=== PATIENT | female | born 2000 | race African-American/Black ===

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

== ENCOUNTER 2022-02-08 15:44 | Outpatient (CLI) | payer MEDICAID ==
[2022-02-08 16:31] VITALS: BP 128/66
[2022-02-08] MEDS ORDERED: LACTATED RINGERS 500 ML IV ONE (18:30)
[2022-02-08 18:48] LABS: Bacteria,Urine 1+ /HPF (Negative); Mucus,Urine FEW /HPF
[2022-02-08 18:54] LABS: Color,Urine Yellow (Yellow)
[2022-02-08 18:55] LABS: Bilirubin,Urine Negative (Negative); Blood,Urine Negative (Negative); PH,Urine 5.5 (5.0-7.0); Urobilinogen,Urine < 2.0 mg/dL (<2.0)
--- NOTE | 2022-02-09 00:34 | Ultrasound Report ---
ULTRASOUND OBSTETRIC INDICATION: 31 weeks, contractions. TECHNIQUE: Transabdominal. COMPARISON: OB ultrasound from 11/12/2021. FINDINGS: There is a single intrauterine in cephalic presentation with a heart rate of 144 BPM and fe nury measurements corresponding to an estimated age of 31.1 weeks. Estimated Weight in grams (if calculated): Estimated Weight Growth Percentile (if calculated): Cervix: closed. Length in cm (if measured): 4.3 Placenta: anterofundal and free of the os. Amniotic Fluid Volume: normal Amniotic Fluid Index (ASHISH) in cm (if calculated): 10.6. Maternal Adnexa: No significant abnormality. IMPRESSION: 1. Single, living intrauterine with estimated sonographic age of 31 weeks, 1 day(s). 2. No significant sonographic abnormality. Signer Name: Yon Gray MD Signed: 02/09/2022 12:29 AM Workstation Name: [id number]
== END 2022-02-08 23:38 | disposition home or self-care (01) ==
LOC: TRG 15:44 → APU 15:46 → TRG 23:38
PROVIDERS: ATTEND Obstetrics & Gynecology
DX: O62.9 Abnormality of forces of labor, unspecified (principal); Z3A.31 31 weeks gestation of pregnancy
CPT/HCPCS: 36415; 59025; 76816; 81001; 82731; 96360; J7120

== ENCOUNTER 2022-03-02 12:35 | Outpatient (CLI) | payer MEDICAID ==
[2022-03-02] MEDS ORDERED: LACTATED RINGERS 1,000 ML IV ONE (14:08)
[2022-03-02] MEDS ORDERED: TERBUTALINE 1 MG/1 ML INJ SUB-Q ONE (14:09)
[2022-03-02] MEDS ORDERED: NIFEdipine*For Tocolysis only* 10 MG CAPSULE PO ONE (15:52)
[2022-03-02] MEDS ORDERED: TERBUTALINE 1 MG/1 ML INJ SUB-Q PRN (19:05)
[2022-03-02] MEDS ORDERED: miSOPROStol 200 MCG TAB PR PRN (19:05)
[2022-03-02] MEDS ORDERED: CARBOPROST TROMETHAMINE 250 MCG/1 ML INJ IM PRN (19:05)
[2022-03-02] MEDS ORDERED: BUTORPHANOL 2 MG/1 ML INJ IV PRN (19:05)
[2022-03-02] MEDS ORDERED: ePHEDrine SULFATE 50 MG/1 ML INJ IV PRN (19:05)
[2022-03-02] MEDS ORDERED: METHYLERGONOVINE MALEATE 0.2 MG/ML VIAL IM PRN (19:05)
[2022-03-02] MEDS ORDERED: NALOXONE 0.4 MG/1 ML INJ IV PRN (19:05)
[2022-03-02] MEDS ORDERED: LOPERAMIDE 2 MG CAP PO PRN (19:05)
[2022-03-02] MEDS ORDERED: MINERAL OIL 30 ML ORAL LIQD PO PRN (19:05)
[2022-03-02] MEDS ORDERED: OXYTOCIN 10 UNIT/1 ML INJ IM PRN (19:05)
[2022-03-02] MEDS ORDERED: AMPICILLIN/NS 2 GM/100 ML 2 GM/100 ML BAG IV ONE (19:05)
[2022-03-02] MEDS ORDERED: LIDOCAINE (2%) 20 MG/1 ML VIAL 20 ML MDV INFILTRATI ONE (19:05)
--- NOTE | 2022-03-02 19:15 | History and Physical Report ---
History of Present Illness Date of examination: 03/02/22 Date of admission: 03/02/2022 Chief complaint: Intense Labor Pains History of present illness: Care at [facility], states course has been uncomplicated. Past History Past Medical History: no pertinent history Past Surgical History: no surgical history Family/Genetic History: none Social history: single - Obstetrical History Expected Date of Delivery: 04/08/22 Actual Gestation: 34 Week(s) 5 Day(s) : 1 Medications and Allergies Allergies Allergy/AdvReac Type Severity Reaction Status Date / Time No Known Allergies Allergy Unverified 06/10/14 04:14 Home Medications Medication Instructions Recorded Confirmed Last Taken Type Doxylamine Succinate/Vit B6 1 each PO Q8H PRN #30 tab 11/12/21 Unknown Rx [Mandy Hoff 10-10 mg Tablet] Review of Systems All systems: negative - Vital Signs Vital signs: Vital Signs Pulse BP Pulse Ox 116 H 131/63 98 03/02/22 13:22 03/02/22 13:22 03/02/22 13:22 Temp Pulse Resp BP Pulse Ox 99.4 F 118 H 119/63 100 03/02/22 17:18 03/02/22 17:49 03/02/22 16:29 03/02/22 17:49 - Physical Exam Breasts: Positive: normal Lungs: Positive: Clear to auscultation, Normal air movement Abdomen: Positive: normal appearance, soft, normal bowel sounds Genitourinary (Female): Positive: normal external genitalia, normal perenium Vagina: Positive: normal moisture Uterus: Positive: enlarged Anus/Rectum: Positive: normal perianal skin - Obstetrical FHR: category 1 Uterine Contraction Monitor Mode: External Cervical Dilatation: 3 (Vtx, Intact) Cervical Effacement Percentage: 80 station: -3 Uterine Contraction Frequency (min): 1-2 Uterine Contraction Pattern: Regular Uterine Tone Measurement Phase: Resting Uterine Contraction Intensity: Moderate Results All other labs normal. Assessment and Plan A: IUP @ 34 5/7 Weeks Category I Tracing Labor GBS Unknown P: Admit to L&D Per Routine Orders GBS Prophylaxis Expectant Management Dr. Piedra Consulted and agrees with Plan of Care
[2022-03-02] MEDS ORDERED: OXYTOCIN DRIP 30 UNITS/500 ML BAG IV SCH ×2 (20:00)
[2022-03-02] MEDS: LACTATED RINGERS 1,000 ML IV SCH (21:30)
[2022-03-02 21:45] LABS: Hematocrit 35.1 % (30.3-42.9); Hemoglobin 11.9 gm/dl (10.1-14.3); Mean Corpuscular HGB Conc 34 % (30-34); Mean Corpuscular Volume 89 fl (79-97); Platelet Count 171 K/mm3 (140-440); Red Blood Count 3.96 M/mm3 (3.65-5.03); Red Cell Distribution Width 14.7 % (13.2-15.2)
[2022-03-02] MEDS: ACETAMINOPHEN 500 MG TAB PO PRN (22:43)
[2022-03-03] MEDS: AMPICILLIN/NS 1 GM/50 ML 1 GM/50 ML BAG IV SCH ×3 (01:54→13:15)
--- NOTE | 2022-03-03 02:36 | Ultrasound Report ---
US OB transvaginal, US OB follow up INDICATION / CLINICAL INFORMATION: cervical length COMPARISON: Limited OB ultrasound 02/08/2022. OB ultrasound 11/12/2021 TECHNIQUE: Using a transcutaneous and endovaginal probe, multiple grayscale, color Doppler, and spect ral Doppler images of the uterus and fetus were captured and stored. FINDINGS: Single cephalic fetus heart rate 150. Amniotic fluid index within normal limits measuring 10.4 cm. Grade 2 anterior placenta without sonographic abnormality. Cervix appears shortened measuring 1.3 cm internal os not well-visualized. There is fluid within the endocervical canal and endocervical canal measures up to 2.6 mm in diameter. Biparietal Diameter = 8.86 cm = 35, 6 weeks, days Head Circumference = 30.68 cm = 34, 1 weeks, days Abdominal Circumference = 29.89 cm = 33, 3 weeks, days Femur Length = 6.62 cm = 34, 1 weeks, days Average Ultrasound Age (AUA) = 34, 3 weeks, days. EDC 04/11/2022. Clinical estimate of gestational age is 34 weeks 6 days. Estimated weight = 2300 g; growth percentile 21%.. IMPRESSION: 1. Single living fetus as detailed. Signer Name: Bryan Rico II, MD Signed: 03/03/2022 2:32 AM Workstation Name: [id number]
[2022-03-03] MEDS: LACTATED RINGERS 1,000 ML IV SCH ×2 (06:18→13:14)
--- NOTE | 2022-03-03 10:47 | Event Note ---
Date: 03/03/22 pt evaluated and pelvic /3 and posterior with dark brown mucus. Will do BPP and same wnl, then will discharge home. Will also check covid test and pt told to keep her mask on. Family members in the room also told to keep their mask on. Nurses aware and temp now low grade.
--- NOTE | 2022-03-03 12:03 | Event Note ---
Date: 03/03/22 pt evaluated again and told that her COVID test is positive. pt also asked per nurse stating hospital policy to have 1visitor only and no longer 2. I also told family members to get tested and the other exposed immediate family members to remain in quarantine. CXR done and report pending.
--- NOTE | 2022-03-03 12:18 | XRay Report ---
CHEST 1 VIEW INDICATION / CLINICAL INFORMATION: coughing, low grade temp preg at 34wks; shield abd STUDY TIME: 1135 COMPARISON: None available. FINDINGS: SUPPORT DEVICES: None HEART / MEDIASTINUM: No significant abnormality. LUNGS / PLEURA: Poor degree of inspiration is seen with crowding of vessels in the lung bases. No def inite pneumonic infiltrate or effusion. No pneumothorax. ADDITIONAL FINDINGS: Probable bone island in right humeral head. Signer Name: Matthieu Jean Baptiste MD Signed: 03/03/2022 12:14 PM Workstation Name: [email or web address]
[2022-03-03] MEDS: ACETAMINOPHEN 500 MG TAB PO PRN ×2 (13:14→21:05)
--- NOTE | 2022-03-03 13:19 | Event Note ---
Date: 03/03/22 pt now febrile with tacchycardia and hospitalist consult done to Dr. Tierney. Will send urine culture, and blood cultures x2sets and start rocephin 2gIV piggyback. Pt remains on room air without shortness of breath.
[2022-03-03] MEDS: cefTRIAXone/NS 2 GM/100 ML 2 GM/100 ML BAG IV SCH (18:04)
[2022-03-03 19:09] LABS: Bacteria,Urine 1+ /HPF (Negative); Color,Urine Yellow (Yellow); Mucus,Urine FEW /HPF
--- NOTE | 2022-03-03 19:17 | Consultation ---
History of Present Illness - Reason for Consult Consult date: 03/03/22 Medical management Requesting physician: BENJI MELGAR Past History Social history: single Medications and Allergies Allergies Allergy/AdvReac Type Severity Reaction Status Date / Time No Known Allergies Allergy Unverified 06/10/14 04:14 Home Medications Medication Instructions Recorded Confirmed Last Taken Type Doxylamine Succinate/Vit B6 1 each PO Q8H PRN #30 tab 11/12/21 Unknown Rx [Mandy Hoff 10-10 mg Tablet] Active Meds: Active Medications Acetaminophen (Acetaminophen 500 Mg Tab) 1,000 mg PO Q4H PRN PRN Reason: Pain, Mild (1-3) Last Admin: 03/03/22 13:14 Dose: 1,000 mg Butorphanol Tartrate (Butorphanol 2 Mg/1 Ml Inj) 2 mg IV Q2H PRN PRN Reason: Pain, Moderate (4-6) Carboprost Tromethamine (Carboprost Tromethamine 250 Mcg/1 Ml Inj) 250 mcg IM ONCE PRN PRN Reason: Uterine Bleeding Lactated Ringer's (Lactated Ringers) 1,000 mls @ 125 mls/hr IV DIRECT CARMEN Last Admin: 03/03/22 13:14 Dose: 125 mls/hr Oxytocin/Sodium Chloride (Pitocin/Ns 30 Unit/500ml) 30 units in 500 mls @ 40 mls/hr IV TITR CARMEN; Protocol Ceftriaxone Sodium (Rocephin/Ns 2 Gm/100 Ml) 2 gm in 100 mls @ 200 mls/hr IV Q24H CARMEN; Protocol Stop: 03/05/22 15:29 Last Admin: 03/03/22 18:04 Dose: 200 mls/hr Loperamide HCl (Loperamide 2 Mg Cap) 2 mg PO ONCE PRN PRN Reason: give with Hemabate Methylergonovine Maleate (Methylergonovine Maleate 0.2 Mg/Ml Vial) 0.2 mg IM ONCE PRN PRN Reason: Uterine Bleeding Naloxone HCl (Naloxone 0.4 Mg/1 Ml Inj) 0.1 mg IV Q2MIN PRN PRN Reason: Res Rate </= 8 or 02 SAT < 92% Terbutaline Sulfate (Terbutaline 1 Mg/1 Ml Inj) 0.25 mg SUB-Q ONCE PRN PRN Reason: Hyperstimulation/Hypertonicity Exam - Constitutional Vitals: Temp Pulse Resp BP Pulse Ox 99.0 F 119 H 16 101/52 97 03/03/22 16:12 03/03/22 19:05 03/03/22 13:14 03/03/22 16:08 03/03/22 19:05 General appearance: Present: no acute distress, well-nourished - EENT Eyes: Present: PERRL ENT: hearing intact, clear oral mucosa - Neck Neck: Present: supple, normal ROM - Respiratory Respiratory effort: normal Respiratory: bilateral: CTA - Cardiovascular Heart Sounds: Present: S1 & S2. Absent: rub, click - Extremities Extremities: pulses symmetrical, No edema Peripheral Pulses: within normal limits - Abdominal General gastrointestinal: Present: soft, non-tender, non-distended, normal bowel sounds Female genitourinary: Present: normal - Integumentary Integumentary: Present: clear, warm, dry - Musculoskeletal Musculoskeletal: gait normal, strength equal bilaterally - Psychiatric Psychiatric: appropriate mood/affect, intact judgment & insight - Neurologic Neurologic: CNII-XII intact, moves all extremities Results - Labs CBC & Chem 7: 03/02/22 19:00 Labs: Abnormal lab results 03/03/22 03/03/22 Range/Units 10:54 Unknown Urine WBC (Auto) 8.0 H (0.0-6.0) /HPF SARS-CoV-2 (PCR) Positive A (Negative) Assessment and Plan - Patient Problems (1) COVID-19 Current Visit: Yes Status: Acute Plan to address problem: Patient is febrile Treated with Tylenol symptomatically IV Rocephin for now Patient is on room air Cannot start Paxlovid because of and possible teratogenic effects (2) Pneumonia Current Visit: Yes Status: Acute Qualifiers: Lung location: unspecified part of lung Plan to address problem: No evidence of infiltrate on chest x-ray Will treat as pneumonia IV Rocephin for now (3) DVT prophylaxis Current Visit: Yes Status: Acute Plan to address problem: On anticoagulation and GI prophylaxis (4) Advance care planning Current Visit: Yes Status: Acute Plan to address problem: Disease education conducted ,care plandiscussed,diagnosis discussed and prognos is discussed.Patient is full code.Patient acknowledges understanding and agreement with care plan .Plus 30 minutes
[2022-03-04] MEDS: ACETAMINOPHEN 500 MG TAB PO PRN ×3 (05:29→20:08)
[2022-03-04 06:13] LABS: Basophils % (Auto) 0.5 % (0.0-1.8); Eosinophils # (Auto) 0.1 K/mm3 (0.0-0.4); Eosinophils % (Auto) 1.9 % (0.0-4.3); Hematocrit 29.9 % (30.3-42.9); Lymphocytes # (Auto) 1.1 K/mm3 (1.2-5.4); Lymphocytes % (Auto) 17.8 % (13.4-35.0); Mean Corpuscular HGB Conc 34 % (30-34); Mean Corpuscular Volume 89 fl (79-97); Monocytes # (Auto) 0.5 K/mm3 (0.0-0.8); Monocytes % (Auto) 8.5 % (0.0-7.3); Platelet Count 138 K/mm3 (140-440); Red Blood Count 3.38 M/mm3 (3.65-5.03); Red Cell Distribution Width 14.5 % (13.2-15.2)
[2022-03-04 06:34] LABS: Alanine Aminotransferase 15 units/L (7-56); Albumin 3.4 g/dL (3.9-5); Blood Urea Nitrogen 4 mg/dL (7-17); Calcium 8.6 mg/dL (8.4-10.2); Hemolysis Index 9
[2022-03-04 06:35] LABS: BUN/Creatinine Ratio 10
[2022-03-04] MEDS: cefTRIAXone/NS 2 GM/100 ML 2 GM/100 ML BAG IV SCH (15:25)
--- NOTE | 2022-03-04 18:26 | Progress Note ---
Assessment and Plan - Patient Problems (1) COVID-19 Current Visit: Yes Status: Acute Plan to address problem: Patient is febrile Treated with Tylenol symptomatically IV Rocephin for now Patient is on room air Cannot start Paxlovid because of and possible teratogenic effects (2) Pneumonia Current Visit: Yes Status: Acute Qualifiers: Lung location: unspecified part of lung Plan to address problem: No evidence of infiltrate on chest x-ray Will treat as pneumonia IV Rocephin for now (3) DVT prophylaxis Current Visit: Yes Status: Acute Plan to address problem: On anticoagulation and GI prophylaxis (4) Advance care planning Current Visit: Yes Status: Acute Plan to address problem: Disease education conducted ,care plandiscussed,diagnosis discussed and prognosis discussed.Patient is full code.Patient acknowledges understanding and agreement with care plan .Plus 30 minutes Subjective Date of service: 03/04/22 Objective - Constitutional Vitals: Vital Signs - 12hr 03/04/22 03/04/22 03/04/22 06:27 06:32 06:37 Temperature Pulse Rate 105 H 97 H 114 H O2 Sat by Pulse 98 97 97 Oximetry O2 Sat by Pulse Oximetry [ Bilateral] 03/04/22 03/04/22 03/04/22 06:42 06:47 06:52 Temperature Pulse Rate 107 H 100 H 110 H O2 Sat by Pulse 97 98 98 Oximetry O2 Sat by Pulse Oximetry [ Bilateral] 03/04/22 03/04/22 03/04/22 06:57 07:02 07:07 Temperature Pulse Rate 110 H 109 H 102 H O2 Sat by Pulse 98 98 97 Oximetry O2 Sat by Pulse Oximetry [ Bilateral] 03/04/22 03/04/22 03/04/22 07:12 07:17 07:22 Temperature Pulse Rate 100 H 98 H 95 H O2 Sat by Pulse 98 97 98 Oximetry O2 Sat by Pulse Oximetry [ Bilateral] 03/04/22 03/04/22 03/04/22 07:27 07:32 07:45 Temperature Pulse Rate 101 H 117 H 110 H O2 Sat by Pulse 98 99 98 Oximetry O2 Sat by Pulse Oximetry [ Bilateral] 03/04/22 03/04/22 03/04/22 07:50 07:55 08:00 Temperature Pulse Rate 101 H 110 H 107 H O2 Sat by Pulse 99 98 99 Oximetry O2 Sat by Pulse Oximetry [ Bilateral] 03/04/22 03/04/22 03/04/22 08:05 08:06 08:10 Temperature 98.2 F Pulse Rate 101 H 108 H O2 Sat by Pulse 99 99 Oximetry O2 Sat by Pulse Oximetry [ Bilateral] 03/04/22 03/04/22 03/04/22 08:15 08:20 08:25 Temperature Pulse Rate 114 H 108 H 104 H O2 Sat by Pulse 99 99 99 Oximetry O2 Sat by Pulse Oximetry [ Bilateral] 03/04/22 03/04/22 03/04/22 08:30 08:35 08:40 Temperature Pulse Rate 96 H 107 H 96 H O2 Sat by Pulse 99 99 99 Oximetry O2 Sat by Pulse Oximetry [ Bilateral] 03/04/22 03/04/22 03/04/22 08:45 08:50 08:55 Temperature Pulse Rate 98 H 105 H 101 H O2 Sat by Pulse 99 99 99 Oximetry O2 Sat by Pulse Oximetry [ Bilateral] 03/04/22 03/04/22 03/04/22 09:00 09:01 09:05 Temperature Pulse Rate 99 H 102 H O2 Sat by Pulse 99 99 Oximetry O2 Sat by Pulse 99 Oximetry [ Bilateral] 03/04/22 03/04/22 03/04/22 09:10 09:15 09:20 Temperature Pulse Rate 102 H 109 H 102 H O2 Sat by Pulse 99 99 99 Oximetry O2 Sat by Pulse Oximetry [ Bilateral] 03/04/22 03/04/22 03/04/22 09:25 09:30 09:35 Temperature Pulse Rate 99 H 94 H 104 H O2 Sat by Pulse 99 99 100 Oximetry O2 Sat by Pulse Oximetry [ Bilateral] 03/04/22 03/04/22 03/04/22 09:45 09:50 09:55 Temperature Pulse Rate 102 H 99 H 95 H O2 Sat by Pulse 99 98 99 Oximetry O2 Sat by Pulse Oximetry [ Bilateral] 03/04/22 03/04/22 03/04/22 10:00 10:05 10:10 Temperature Pulse Rate 100 H 96 H 100 H O2 Sat by Pulse 99 99 99 Oximetry O2 Sat by Pulse Oximetry [ Bilateral] 03/04/22 03/04/22 03/04/22 10:15 10:20 10:25 Temperature Pulse Rate 100 H 102 H 105 H O2 Sat by Pulse 99 99 99 Oximetry O2 Sat by Pulse Oximetry [ Bilateral] 03/04/22 03/04/22 03/04/22 10:30 10:35 10:40 Temperature Pulse Rate 98 H 99 H 108 H O2 Sat by Pulse 99 98 100 Oximetry O2 Sat by Pulse Oximetry [ Bilateral] 03/04/22 03/04/22 03/04/22 10:45 10:50 10:55 Temperature Pulse Rate 90 97 H 108 H O2 Sat by Pulse 99 99 100 Oximetry O2 Sat by Pulse Oximetry [ Bilateral] 03/04/22 03/04/22 03/04/22 11:02 11:07 11:12 Temperature Pulse Rate 105 H 107 H 96 H O2 Sat by Pulse 98 99 99 Oximetry O2 Sat by Pulse Oximetry [ Bilateral] 03/04/22 03/04/22 03/04/22 11:17 11:22 11:27 Temperature Pulse Rate 101 H 111 H 92 H O2 Sat by Pulse 99 99 98 Oximetry O2 Sat by Pulse Oximetry [ Bilateral] 03/04/22 03/04/22 03/04/22 11:32 11:37 11:42 Temperature Pulse Rate 106 H 107 H 110 H O2 Sat by Pulse 99 99 99 Oximetry O2 Sat by Pulse Oximetry [ Bilateral] 03/04/22 03/04/22 03/04/22 11:47 11:52 11:57 Temperature Pulse Rate 119 H 108 H 109 H O2 Sat by Pulse 99 99 98 Oximetry O2 Sat by Pulse Oximetry [ Bilateral] 03/04/22 03/04/22 03/04/22 12:02 12:07 12:12 Temperature Pulse Rate 124 H 121 H 116 H O2 Sat by Pulse 99 99 99 Oximetry O2 Sat by Pulse Oximetry [ Bilateral] 03/04/22 03/04/22 03/04/22 12:17 12:22 12:27 Temperature Pulse Rate 111 H 111 H 107 H O2 Sat by Pulse 99 99 99 Oximetry O2 Sat by Pulse Oximetry [ Bilateral] 03/04/22 03/04/22 03/04/22 12:32 12:37 12:42 Temperature Pulse Rate 113 H 110 H 97 H O2 Sat by Pulse 99 99 99 Oximetry O2 Sat by Pulse Oximetry [ Bilateral] 03/04/22 03/04/22 03/04/22 12:47 12:52 12:57 Temperature Pulse Rate 97 H 100 H 99 H O2 Sat by Pulse 98 99 99 Oximetry O2 Sat by Pulse Oximetry [ Bilateral] 03/04/22 03/04/22 03/04/22 13:02 13:07 13:12 Temperature Pulse Rate 100 H 103 H 105 H O2 Sat by Pulse 99 99 99 Oximetry O2 Sat by Pulse Oximetry [ Bilateral] 03/04/22 03/04/22 03/04/22 13:17 13:22 13:27 Temperature Pulse Rate 95 H 96 H 95 H O2 Sat by Pulse 99 99 99 Oximetry O2 Sat by Pulse Oximetry [ Bilateral] 03/04/22 03/04/22 03/04/22 13:32 13:37 13:42 Temperature Pulse Rate 104 H 101 H 94 H O2 Sat by Pulse 100 99 99 Oximetry O2 Sat by Pulse Oximetry [ Bilateral] 03/04/22 03/04/22 03/04/22 13:47 13:52 13:57 Temperature Pulse Rate 101 H 99 H 115 H O2 Sat by Pulse 98 99 99 Oximetry O2 Sat by Pulse Oximetry [ Bilateral] 03/04/22 03/04/22 03/04/22 14:02 14:07 14:12 Temperature Pulse Rate 119 H 113 H 112 H O2 Sat by Pulse 99 99 99 Oximetry O2 Sat by Pulse Oximetry [ Bilateral] 03/04/22 03/04/22 03/04/22 14:17 14:22 14:27 Temperature Pulse Rate 121 H 108 H 119 H O2 Sat by Pulse 99 99 100 Oximetry O2 Sat by Pulse Oximetry [ Bilateral] 03/04/22 03/04/22 03/04/22 14:32 14:37 14:42 Temperature Pulse Rate 118 H 110 H 110 H O2 Sat by Pulse 99 99 99 Oximetry O2 Sat by Pulse Oximetry [ Bilateral] 03/04/22 03/04/22 03/04/22 14:47 14:52 14:57 Temperature Pulse Rate 110 H 116 H 120 H O2 Sat by Pulse 99 99 100 Oximetry O2 Sat by Pulse Oximetry [ Bilateral] 03/04/22 03/04/22 03/04/22 15:07 15:12 15:17 Temperature Pulse Rate 113 H 116 H 109 H O2 Sat by Pulse 100 100 99 Oximetry O2 Sat by Pulse Oximetry [ Bilateral] 08/27/22 08/27/22 08/27/22 15:22 15:27 15:32 Temperature Pulse Rate 110 H 113 H 110 H O2 Sat by Pulse 99 99 99 Oximetry O2 Sat by Pulse Oximetry [ Bilateral] 03/04/22 03/04/22 03/04/22 15:37 15:42 15:47 Temperature Pulse Rate 109 H 110 H 114 H O2 Sat by Pulse 99 99 99 Oximetry O2 Sat by Pulse Oximetry [ Bilateral] 03/04/22 03/04/22 03/04/22 15:52 15:57 16:02 Temperature Pulse Rate 111 H 112 H 110 H O2 Sat by Pulse 99 100 100 Oximetry O2 Sat by Pulse Oximetry [ Bilateral] 03/04/22 03/04/22 03/04/22 16:07 16:12 16:17 Temperature Pulse Rate 110 H 122 H 105 H O2 Sat by Pulse 99 99 99 Oximetry O2 Sat by Pulse Oximetry [ Bilateral] 03/04/22 03/04/22 03/04/22 16:22 16:27 16:32 Temperature Pulse Rate 120 H 113 H 114 H O2 Sat by Pulse 99 99 99 Oximetry O2 Sat by Pulse Oximetry [ Bilateral] 03/04/22 03/04/22 03/04/22 16:37 16:42 16:47 Temperature Pulse Rate 119 H 113 H 116 H O2 Sat by Pulse 99 98 98 Oximetry O2 Sat by Pulse Oximetry [ Bilateral] 03/04/22 03/04/22 03/04/22 16:52 16:57 17:02 Temperature Pulse Rate 108 H 110 H 109 H O2 Sat by Pulse 98 98 99 Oximetry O2 Sat by Pulse Oximetry [ Bilateral] 03/04/22 03/04/22 03/04/22 17:07 17:12 17:21 Temperature Pulse Rate 101 H 105 H 108 H O2 Sat by Pulse 98 99 99 Oximetry O2 Sat by Pulse Oximetry [ Bilateral] 03/04/22 03/04/22 03/04/22 17:26 17:31 17:36 Temperature Pulse Rate 117 H 107 H 113 H O2 Sat by Pulse 98 97 99 Oximetry O2 Sat by Pulse Oximetry [ Bilateral] 03/04/22 03/04/22 03/04/22 17:41 17:46 17:51 Temperature Pulse Rate 109 H 111 H 102 H O2 Sat by Pulse 98 99 99 Oximetry O2 Sat by Pulse Oximetry [ Bilateral] 03/04/22 03/04/2222 17:56 18:01 18:06 Temperature Pulse Rate 121 H 111 H 106 H O2 Sat by Pulse 99 99 99 Oximetry O2 Sat by Pulse Oximetry [ Bilateral] 03/04/22 03/04/22 03/04/22 18:11 18:16 18:21 Temperature Pulse Rate 111 H 98 H 99 H O2 Sat by Pulse 99 99 99 Oximetry O2 Sat by Pulse Oximetry [ Bilateral] General appearance: Present: no acute distress, well-nourished - EENT Eyes: PERRL, EOM intact ENT: hearing intact, clear oral mucosa Ears: bilateral: normal - Neck Neck: supple, normal ROM - Respiratory Respiratory effort: normal Respiratory: bilateral: CTA - Breasts Breasts: normal - Cardiovascular Rhythm: regular Heart Sounds: Present: S1 & S2. Absent: gallop, rub Extremities: pulses intact, No edema, normal color, Full ROM - Gastrointestinal General gastrointestinal: Present: soft, non-tender, non-distended, normal bowel sounds - Genitourinary Female genitourinary: normal - Integumentary Integumentary: clear, warm, dry - Musculoskeletal Musculoskeletal: 1, strength equal bilaterally - Neurologic Neurologic: moves all extremities - Psychiatric Psychiatric: memory intact, appropriate mood/affect, intact judgment & insight - Labs CBC & Chem 7: 03/04/22 05:48 03/04/22 05:48 Labs: Abnormal lab results 03/03/22 03/04/22 03/04/22 Range/Units Unknown 05:48 05:48 RBC 3.38 L (3.65-5.03) M/mm3 Hgb 10.0 L (10.1-14.3) gm/dl Hct 29.9 L (30.3-42.9) % Plt Count 138 L (140-440) K/mm3 [place] % (Auto) 8.5 H (0.0-7.3) % Lymph # (Auto) 1.1 L (1.2-5.4) K/mm3 Seg Neutrophils % 71.3 H (40.0-70.0) % Carbon Dioxide 20 L (22-30) mmol/L BUN 4 L (7-17) mg/dL Creatinine 0.4 L (0.6-1.2) mg/dL Alkaline Phosphatase 186 H (35-129) units/L Total Protein 5.2 L (6.3-8.2) g/dL Albumin 3.4 L (3.9-5) g/dL Urine WBC (Auto) 8.0 H (0.0-6.0) /HPF
--- NOTE | 2022-03-04 20:48 | Event Note ---
Date: 03/04/22 pt doing fair on rocephin and blood culture negative. Will continue present mgt with reassuring FHR and no longer with ctx per nurse report. Will consider discharge home tomorrow.
[2022-03-05] MEDS: cefTRIAXone/NS 2 GM/100 ML 2 GM/100 ML BAG IV SCH (14:32)
[2022-03-05 14:36] VITALS: BP 105/54
--- NOTE | 2022-03-05 15:16 | Discharge Summary ---
Providers - Providers Date of discharge: 03/05/22 Attending physician: BENJI MELGAR 03/03/22 13:14 Consult to Physician [CONS] Stat Comment: Consulting Provider: MARQUIS ISABEL Physician Instructions: cxr unclear Reason For Exam: febrile preg at 34.3wks with covid, wbc wnl; cough 03/04/22 08:15 Consult to Physician [CONS] Routine Comment: Consulting Provider: LATRICE FERNÁNDEZ Physician Instructions: Reason For Exam: Covid +, 34.5 weeks gestation Primary care physician: BENJI MELGAR Hospitalization Reason for admission: labor (at 34.5), other (covid pos) Discharge diagnosis: other ( contractions, covid positive) Condition at discharge: Good Disposition: 01 HOME / SELF CARE / HOMELESS Plan - Provider Discharge Summary Activity: routine Diet: routine Instructions: routine Additional instructions: [] Smoking cessation referral if applicable(refer to patient education folder for contact #) [] Refer to [facility]'s [facility] Booklet Call your doctor immediately for: * Fever > 100.5 * Heavy vaginal bleeding ( >1 pad per hour) * Severe persistent headache * Shortness of breath * Reddened, hot, painful area to leg or breast * Drainage or odor from incision. - Follow up plan Follow up: BENJI MELGAR MD [Primary Care Provider] - 14 Days (Return of OBGYN after 2weeks with a negative covid test. If any contractions, decrease movement occurs, go to the hospital for evaluation.)
== END 2022-03-05 16:25 | disposition home or self-care (01) ==
LOC: TRG 12:35 → APU 12:36 → LD 21:06 → TRG 03-05 16:25
PROVIDERS: ATTEND Obstetrics & Gynecology
DX: O62.9 Abnormality of forces of labor, unspecified (principal); O98.513 Other viral diseases complicating pregnancy, third trimester; U07.1 COVID-19; O99.513 Diseases of the respiratory system complicating pregnancy, third trimester; J12.82 Pneumonia due to coronavirus disease 2019; O22.33 Deep phlebothrombosis in pregnancy, third trimester; I82.409 Acute embolism and thrombosis of unspecified deep veins of unspecified lower extremity; Z79.01 Long term (current) use of anticoagulants; Z3A.34 34 weeks gestation of pregnancy
CPT/HCPCS: 36415; 71045; 76816; 76817; 80053; 81001; 85014; 85018; 85025; 86850; 86900; 86901; 87040; 96361; 96365; 96367; 96372; 96376; J0290; J0696; J3105; J7120; U0003; 85027

== ENCOUNTER 2022-03-23 16:28 | Inpatient (IN) | payer MEDICAID ==
[2022-03-23] MEDS ORDERED: MINERAL OIL 30 ML ORAL LIQD PO PRN (18:49)
[2022-03-23] MEDS ORDERED: OXYTOCIN 10 UNIT/1 ML INJ IM PRN (18:49)
[2022-03-23] MEDS ORDERED: LIDOCAINE (2%) 20 MG/1 ML VIAL 20 ML MDV INFILTRATI ONE (18:49)
[2022-03-23] MEDS ORDERED: ePHEDrine SULFATE 50 MG/1 ML INJ IV PRN (18:49)
[2022-03-23] MEDS ORDERED: ACETAMINOPHEN 325 MG TAB PO PRN (18:49)
[2022-03-23] MEDS ORDERED: PROMETHAZINE 25 MG TAB PO PRN (18:49)
[2022-03-23] MEDS ORDERED: ONDANSETRON 4 MG/2 ML INJ IV PRN (18:49)
[2022-03-23] MEDS ORDERED: TERBUTALINE 1 MG/1 ML INJ SUB-Q PRN (18:49)
[2022-03-23] MEDS ORDERED: miSOPROStol 200 MCG TAB PR PRN (18:49)
[2022-03-23] MEDS ORDERED: BUTORPHANOL 2 MG/1 ML INJ IV PRN ×2 (18:49)
[2022-03-23] MEDS ORDERED: NALOXONE 0.4 MG/1 ML INJ IV PRN (18:49)
[2022-03-23] MEDS ORDERED: CARBOPROST TROMETHAMINE 250 MCG/1 ML INJ IM PRN (18:49)
[2022-03-23] MEDS ORDERED: METHYLERGONOVINE MALEATE 0.2 MG/ML VIAL IM PRN (18:49)
[2022-03-23] MEDS ORDERED: LOPERAMIDE 2 MG CAP PO PRN (18:49)
--- NOTE | 2022-03-23 18:59 | History and Physical Report ---
History of Present Illness Date of examination: 03/23/22 Date of admission: 03/23/2022 Chief complaint: Contractions History of present illness: 21 YO HODAN 04/08/22 @37.5wks gestation presents to Labor and Delivery complaining of contractions. She had adequate care since 8wks gestation. She has been Dx with anemia tx with po iron, positive covid at the end of February 2022, currently rubella NI, and GBs neg. Past History Past Medical History: no pertinent history Past Surgical History: no surgical history Family/Genetic History: none Social history: no significant social history - Obstetrical History Expected Date of Delivery: 04/08/22 Actual Gestation: 37 Week(s) 5 Day(s) : 1 Para: 0 Hx # Term Pregnancies: 0 Number of Pregnancies: 0 Spontaneous Abortions: 0 Induced : 0 Number of Living Children: 0 Medications and Allergies Allergies Allergy/AdvReac Type Severity Reaction Status Date / Time No Known Allergies Allergy Unverified 06/10/14 04:14 Home Medications Medication Instructions Recorded Confirmed Last Taken Type Doxylamine Succinate/Vit B6 1 each PO Q8H PRN #30 tab 11/12/21 Unknown Rx [Diclegis Dr 10-10 mg Tablet] Acetaminophen [Acetaminophen TAB] 1,000 mg PO Q4H PRN tablet 03/05/22 Unknown Rx - Vital Signs Vital signs: Vital Signs Pulse Resp BP Pulse Ox 81 18 119/67 99 03/23/22 17:27 03/23/22 17:27 03/23/22 17:27 03/23/22 17:27 Temp Pulse Resp BP Pulse Ox 79 18 119/67 100 03/23/22 18:52 03/23/22 17:27 03/23/22 17:29 03/23/22 18:52 - Physical Exam Breasts: Positive: deferred Cardiovascular: Regular rate Lungs: Positive: Clear to auscultation, Normal air movement Abdomen: Positive: normal appearance Uterus: Positive: enlarged Deep Tendon Reflex Grade: Normal +2 - Obstetrical FHR: category 1 Uterine Contraction Monitor Mode: External Cervical Dilatation: 4 (done by RN) Cervical Effacement Percentage: 90 station: -1 Uterine Contraction Frequency (min): 2-4 Uterine Contraction Pattern: Regular Uterine Contraction Intensity: Moderate Results All other labs normal. Assessment and Plan A: @37.5wks anemia GBs neg P: admit to labor and delivery anticipated delivery
[2022-03-23] MEDS ORDERED: OXYTOCIN DRIP 30 UNITS/500 ML BAG IV SCH ×2 (19:00)
[2022-03-23] MEDS ORDERED: LACTATED RINGERS 1,000 ML IV SCH (19:00)
[2022-03-23 20:58] LABS: Hematocrit 32.5 % (30.3-42.9); Hemoglobin 11.1 gm/dl (10.1-14.3); Mean Corpuscular HGB Conc 34 % (30-34); Mean Corpuscular Volume 87 fl (79-97); Platelet Count 152 K/mm3 (140-440); Red Blood Count 3.75 M/mm3 (3.65-5.03); Red Cell Distribution Width 14.5 % (13.2-15.2)
--- NOTE | 2022-03-24 07:59 | Event Note ---
Date: 03/24/22 S: Feeling contractions O: VE 80/0, Arom clear fluid, Pit increased to 4 mu, CAT I tracing A: Active labor P: Expect
[2022-03-24] MEDS ORDERED: LIDOCAINE (2%) 20 MG/1 ML VIAL 20 ML MDV INFILTRATI ONE ×2 (08:51→09:06)
--- NOTE | 2022-03-24 09:46 | Procedure Note ---
OB Delivery Note - Delivery Date of Delivery: 03/24/22 Surgeon: LACEY DONIS Estimated blood loss: 200cc - Vaginal Delivery presentation: vertex Delivery position: OA Delivery augmentation: rupture of membranes, pitocin Delivery monitor: external FHT, external uterine Route of delivery: Delivery placenta: spontaneous Delivery laceration: vaginal side wall (vaginal floor and bilateral labial lac) Delivery repair: vicryl Anesthesia: local Delivery comments: of a viable female 6#3 oz on 03/24 @ 0857 over vaginal floor lac and bilateral labia lac. Placenta delivered 3VC, adherent membranes removed manually. Lacerations repaired with 2-0 and 3-0 vicryl. QBL 200cc. Vaginal pack placed and solo inserted. Mother and baby doing well. - A at 1 minute: 9 at 5 minutes: 9 Infant Gender: Female (6#3oz)
[2022-03-24] MEDS: IBUPROFEN 800 MG TAB PO SCH ×3 (10:32→23:30)
[2022-03-24] MEDS ORDERED: diphenhydrAMINE 25 MG CAP PO PRN (11:00)
[2022-03-24] MEDS ORDERED: oxyCODONE /ACETAMINOPHEN 5-325MG TAB PO PRN (11:00)
[2022-03-24] MEDS ORDERED: LANOLIN/ZINC/DIMETHICONE (LANSINOH) 7 GM TP PRN (11:00)
[2022-03-24] MEDS ORDERED: ACETAMINOPHEN 325 MG TAB PO PRN (11:00)
[2022-03-24] MEDS: WITCH HAZEL/ GLYCERIN PAD TP PRN (17:01)
--- NOTE | 2022-03-24 17:10 | Event Note ---
Date: 03/24/22 O: Vaginal packing and solo removed, FF @ u-3, katie loyola A: DOD - stable P: routine PP care
[2022-03-24] MEDS ORDERED: MAGNESIUM HYDROXIDE (MOM) ORAL LIQD UDC PO PRN (22:00)
[2022-03-24 23:41] LABS: Hematocrit 28.4 % (30.3-42.9); Hemoglobin 9.7 gm/dl (10.1-14.3)
--- NOTE | 2022-03-25 10:33 | Progress Note ---
Assessment and Plan A: PPD # 1- stable P: Plan discharge home tomorrow Discharge instructions given Subjective - Subjective Date of service: 03/25/22 Principal diagnosis: PPD #1- stable Patient reports: appetite normal [place]: doing well Objective - Vital Signs Latest vital signs: Vital Signs Temp Pulse Resp BP BP Pulse Ox Pulse Ox 03/25/22 08:15 98 03/25/22 07:36 97.5 F L 18 103/52 100 03/24/22 23:30 12 03/24/22 23:22 98.0 F 86 20 118/69 99 03/24/22 20:38 98 03/24/22 15:33 98.1 F 89 18 116/46 99 03/24/22 10:50 98.1 F 81 18 122/61 98 98 Intake and Output 03/24/22 03/25/22 03/25/22 22:59 06:59 14:59 Intake Total 240 Output Total 1100 Balance -860 Intake: Oral 240 Output: Urine 1100 Indwelling Catheter 500 Uretheral (Prasad) 200 Void 400 Other: Total, Intake Amount 240 Total, Output Amount 200 # Voids Void 1 - Exam Breasts: Present: deferred Cardiovascular: Present: Regular rate Lungs: Present: Clear to auscultation Abdomen: Present: soft Vulva: both: normal Uterus: Present: fundal height below umbilicus Deep Tendon Reflex Grade: Normal +2 - Labs Labs: Abnormal lab results 03/24/22 Range/Units 22:38 Hgb 9.7 L (10.1-14.3) gm/dl Hct 28.4 L (30.3-42.9) %
--- NOTE | 2022-03-25 10:35 | Discharge Summary ---
Providers - Providers Date of Admission: 03/23/22 18:49 Date of discharge: 03/26/22 Attending physician: SHAUNNA BOND MD Primary care physician: SHAUNNA BOND MD Hospitalization Reason for admission: active labor Delivery: Episiotomy: none Laceration: vaginal side wall (labial lac), 1st degree Other procedures: none complications: none Discharge diagnosis: IUP at term delivered [place] baby: female Condition at discharge: Good Disposition: 01 HOME / SELF CARE / HOMELESS Plan - Provider Discharge Summary Activity: routine, no sex for 6 weeks, no strenuous exercise Diet: routine Instructions: routine Additional instructions: [] Smoking cessation referral if applicable(refer to patient education folder for contact #) [] Refer to [facility]'s [facility] Booklet Call your doctor immediately for: * Fever > 100.5 * Heavy vaginal bleeding ( >1 pad per hour) * Severe persistent headache * Shortness of breath * Reddened, hot, painful area to leg or breast * Drainage or odor from incision. * Keep incision clean and dry at all times and follow doctor's instructions regarding bathing/showering - Follow up plan Follow up: SHAUNNA BOND MD [Primary Care Provider] - 6 Weeks
[2022-03-25] MEDS: IBUPROFEN 800 MG TAB PO SCH ×2 (11:03→23:07)
[2022-03-25] MEDS: WITCH HAZEL/ GLYCERIN PAD TP PRN (15:54)
[2022-03-26] MEDS: IBUPROFEN 800 MG TAB PO SCH ×2 (05:52→12:06)
[2022-03-26 12:08] VITALS: BP 116/69
== END 2022-03-26 12:23 | disposition home or self-care (01) | DRG 775 ==
LOC: TRG 16:28 → APU 16:34 → TRG 19:11 → LD 20:32 → OB 03-24 10:48
PROVIDERS: ADMIT Obstetrics & Gynecology Gynecology; ATTEND Obstetrics & Gynecology Gynecology
PROC: 10E0XZZ Delivery of Products of Conception, External Approach (ICD-10-PCS; principal; 2022-03-24)
PROC: 10907ZC Drainage of Amniotic Fluid, Therapeutic from Products of Conception, Via Natural or Artificial Opening (ICD-10-PCS; 2022-03-24)
PROC: 0HQ9XZZ Repair Perineum Skin, External Approach (ICD-10-PCS; 2022-03-24)
DX: O99.02 Anemia complicating childbirth (principal); Z3A.37 37 weeks gestation of pregnancy; Z20.822 Contact with and (suspected) exposure to COVID-19; Z37.0 Single live birth; O70.0 First degree perineal laceration during delivery
CPT/HCPCS: 36415; 85014; 85018; 85027; 86850; 86900; 86901; G0378; J0595; J2590; U0003